=== PATIENT | male | born 1980 | race Caucasian/White ===

== ENCOUNTER 2018-02-03 16:38 | Emergency (ER) | payer MEDICAID ==
[~2018-02-03] VITALS: Ht 162.6 cm; Wt 82.7 kg
[~2018-02-03 16:38] MED LIST: IBUP-1985 PO; NO HOME MEDS
[2018-02-03 17:07] VITALS: BP 164/103
[2018-02-03] MEDS ORDERED: LIDOcaine 1% w/EPI 1:100,000 30ml vial (MDV) IJ ONE (18:55)
[2018-02-03] MEDS ORDERED: HYDROcodone/acetaminophen 10/325mg tab PO ONE (18:55)
[2018-02-03] MEDS ORDERED: LIDOcaine 1.5% w/epinephrine 1:200,000 5ml ampul IJ ONE (18:55)
[2018-02-03] MEDS ORDERED: SULF1TAB49 PO (19:02)
== END 2018-02-03 19:29 | disposition home or self-care (01) ==
LOC: ER 16:39
DX: L02.414 Cutaneous abscess of left upper limb (principal); G89.29 Other chronic pain; M25.512 Pain in left shoulder; Z88.0 Allergy status to penicillin; Z88.5 Allergy status to narcotic agent; Z88.1 Allergy status to other antibiotic agents; Z79.2 Long term (current) use of antibiotics; Z79.899 Other long term (current) drug therapy; Z98.890 Other specified postprocedural states
CPT/HCPCS: 10060; 99283; J3490

== ENCOUNTER 2019-08-04 00:12 | Emergency (ER) | payer MEDICAID ==
[~2019-08-04] VITALS: Ht 162.6 cm; Wt 82.7 kg
[2019-08-04] MEDS ORDERED: ketorolac trometh inj. 60 MG/2 ML VIAL IM ONE (00:45)
[2019-08-04] MEDS ORDERED: TRAM50TA2 PO (01:13)
[2019-08-04 01:27] VITALS: BP 118/88
== END 2019-08-04 01:28 | disposition home or self-care (01) ==
LOC: ER 00:13
DX: M25.512 Pain in left shoulder (principal); Z98.890 Other specified postprocedural states; Z88.1 Allergy status to other antibiotic agents; Z88.5 Allergy status to narcotic agent; Z88.0 Allergy status to penicillin; Z79.899 Other long term (current) drug therapy
CPT/HCPCS: 73030; 96372; 99284; J1885

== ENCOUNTER 2021-02-01 17:35 | Emergency (ER) | payer MEDICAID ==
[~2021-02-01] VITALS: Ht 162.6 cm; Wt 80.0 kg
[2021-02-01 17:37] VITALS: BP 134/100
[2021-02-01] MEDS ORDERED: NAPR-56 PO (19:16)
== END 2021-02-01 20:27 | disposition home or self-care (01) ==
LOC: ER 17:35
DX: M76.62 Achilles tendinitis, left leg (principal); Z88.0 Allergy status to penicillin; Z88.5 Allergy status to narcotic agent; Z79.899 Other long term (current) drug therapy
CPT/HCPCS: 73610; 99283